=== PATIENT | male | born 1985 | race Caucasian/White ===

== ENCOUNTER 2019-01-18 13:52 | Emergency (ER) | payer OTHER ==
[~2019-01-18] VITALS: Ht 170.2 cm; Wt 80.3 kg
[2019-01-18] MEDS ORDERED: TETANUS,DIPTH,PERTUSS P/F (BOOSTRIX) 0.5 ML VIAL IM ONE (14:15)
--- NOTE | 2019-01-18 14:18 | ED Upper Extremity ---
General Chief Complaint: Laceration Stated Complaint: WC RT PINKY LAC Source: patient History of Present Illness Date Seen by Provider: January 18, 2019 Time Seen by Provider: 14:13 Initial Comments Patient is a 33-year-old right-handed male presents with a superficial laceration over the extensor surface of his distal right small finger. Patient works in a glass industry and Himself on an old piece of weathered glass approximately 3 hours prior to the arrival. Patient reports persistent leading since that time of injury. Last known tetanus is greater than 5 years. No other acute symptoms or complaints. Onset: this morning Pain/Injury Location: right 4th finger Method of Injury: incised Allergies and Home Medications Allergies Coded Allergies: No Known Drug Allergies (Unverified , 01/18/19) Patient Home Medication List Home Medication List Reviewed: Yes Review of Systems Constitutional: no symptoms reported EENTM: no symptoms reported Respiratory: no symptoms reported Cardiovascular: no symptoms reported Gastrointestinal: no symptoms reported Genitourinary: no symptoms reported Musculoskeletal: no symptoms reported Skin: see HPI Past Ofzcsbh-Xllbbr-Mlcual Hx Past Med/Social Hx: Reviewed Nursing Past Med/Soc Hx Physical Exam Vital Signs Capillary Refill : Height, Weight, BMI Height: '" Weight: lbs. oz. kg; BMI Method: General Appearance: WD/WN, no apparent distress Hand: soft tissue tenderness (1.5-2.0 cm superficial laceration with partial skin flap over the extensor surface of the DIP joint. No joint involved. We discussed cleaned, no foreign body is present. Loss of motor function or sensation.) Departure Communication (Admissions) Wound cleansed and closed with wound adhesive. Tetanus updated. Fingers saud taped firsts support. Typical wound care instructions provided. Patient instructed to return to the ED if signs of infection. Impression Primary Impression: Laceration of right little finger Disposition: HOME, SELF-CARE Condition: Stable Departure-Patient Inst. Referrals: NO,LOCAL PHYSICIAN (PCP/Family) Primary Care Physician Patient Instructions: Wound Care Add. Discharge Instructions: Please keep wound clean and dry and covered while at work. Avoid soaking. Take ibuprofen for pain. Return to the ED if signs of infection. All discharge instructions reviewed with patient and/or family. Voiced understanding. KAROL YOUNG DO January 18, 2019 14:18
[2019-01-18 14:29] VITALS: BP 143/92
--- OUTSIDE RECORDS SUMMARY | 2019-01-18 14:34 | XMS REPORT ---
Author Author Migration, Doctor Organization [facility] Address Unknown Phone Unavailable Care Team Providers Care Brick Off Bearer Name Role Phone Migration, Doctor Unavailable Unavailable PROBLEMS Type Condition ICD9-CM Code [id number] Code Onset Dates Condition Status SNOMED Code Problem Dental examination V72.2 Active [id number] ALLERGIES No Information ENCOUNTERS Encounter Location Date Diagnosis [facility] [address] [place] [id number] Mar, Dental examination Z01.20 [facility] [address] [address] Dec, [facility] [address] [address] Dec, [facility] [address] [place] [id number] Nov, [facility] [address] [place] [address] Oct, IMMUNIZATIONS No Known Immunizations SOCIAL HISTORY Never Assessed REASON FOR VISIT [facility] [place] PLAN OF CARE VITAL SIGNS MEDICATIONS Medication Instructions Dosage Frequency Start Date End Date Duration Status Ibuprofen 600 mg take 1 tablet (600 mg) by oral route every 6 hours as needed with food PRN Nov, Active RESULTS No Results PROCEDURES No Known procedures INSTRUCTIONS MEDICATIONS ADMINISTERED No Known Medications MEDICAL (GENERAL) HISTORY Type Description Date Medical History high blood pressure
== END 2019-01-18 14:30 | disposition home or self-care (01) ==
LOC: ER FS 13:55
DX: S61.216A Laceration without foreign body of right little finger without damage to nail, initial encounter (principal); W25.XXXA Contact with sharp glass, initial encounter
CPT/HCPCS: 12041; 90715